=== PATIENT | female | born 1990 | race Caucasian/White ===

== ENCOUNTER → 2018-10-28 | Outpatient (CLI) | payer OTHER ==
--- NOTE | 2018-10-28 14:52 | REP ---
Clinical: Trauma. Puncture wound. Technique: AP, lateral, bilateral oblique views right second toe. Findings: The osseous structures and joint spaces are intact and normal. There is no evidence for acute fracture or dislocation. Surrounding soft tissues are unremarkable. No subcutaneous emphysema or radiodense foreign body. Impression: Unremarkable examination. No subcutaneous emphysema or foreign body. Electronically Signed by Francisco Barrow MD 10/28/2018 02:43 P
== END ==
LOC: M LRY 14:05
PROVIDERS: ATTEND Nurse Practitioner Family
DX: S91.331A Puncture wound without foreign body, right foot, initial encounter (principal); W22.8XXA Striking against or struck by other objects, initial encounter; Y92.9 Unspecified place or not applicable
CPT/HCPCS: 73660; 90471; 90715; G0463

== ENCOUNTER → 2018-12-20 | Outpatient (REF) | payer OTHER | LOC: M SFHCLERA 14:49 | PROVIDERS: ATTEND Nurse Practitioner Family | DX: J02.9 Acute pharyngitis, unspecified (principal) ==